=== PATIENT | male | born 2005 | race Caucasian/White ===

== ENCOUNTER 2023-07-10 00:48 | Emergency (ER) | payer SELFPAY ==
[2023-07-10 00:58] VITALS: BP 138/89; PULSE 110; RESP 16; TEMP 37.1; O2SAT 99; BMI 38.7
--- NOTE | 2023-07-10 01:34 | XR_ITS ---
The [address] [address] Patient Name: ANN MARTIN MRN: [id number] date: 2005 Sex: M Assigned Patient Location: ER Current Patient Location: Accession/Order Number: [id number] Exam Date: 07/10/2023 01:54 Report Date: 07/10/2023 02:37 At the request of: JENNIFER WHITE Procedure: XR chest 2V EXAM: XR chest 2V HISTORY: cough and flulike symptoms. COMPARISON: Acute abdominal series, 09/26/2015. TECHNIQUE: Frontal and lateral chest x-rays. FINDINGS: The heart, mediastinum and pulmonary vascularity are within normal limits. The lungs and pleural spaces are clear. The bony thorax is intact. XR/XR chest 2V IMPRESSION: Nonacute chest. Electronically authenticated by: RICARDO PADILLA Date: 07/10/2023 02:37
--- NOTE | 2023-07-10 01:38 | ED_ITS ---
HPI - URI/Sore Throat General Chief Complaint: Upper Respiratory Infection Stated Complaint: SORE THROAT Time Seen by Provider: 07/10/23 01:25 Source: patient Limitations: no limitations History of Present Illness HPI Narrative: patient presents complaining of being ill for past 4 days. Describes heart burn, cough. Throat is sore but no problem swallowing. not short of breath. No abdominal pain or headache. he is here with his mother who has similar symptoms MD elicited complaint: Reports cough Related Data Allergies Allergy/AdvReac Type Severity Reaction Status Date / Time No Known Drug Allergies Allergy Verified 07/10/23 01:00 Review of Systems ROS Status of ROS 10 or more systems reviewed and unremarkable except as noted in history and below [facility] PFS Social History Smoking status: Current every day smoker Exam Constitutional Vital Signs, click to edit/add: Last Vital Signs Temp 98.7 F 07/10/23 00:58 Pulse 110 H 07/10/23 00:58 Resp 16 07/10/23 00:58 BP 138/89 07/10/23 00:58 Pulse Ox 99 07/10/23 00:58 O2 Del Method Room Air 07/10/23 00:58 Common normals: no apparent distress, average body habitus, oriented x3, no limitations, healthy appearing, alert and well nourished [facility] Other: oral pharynx clear Eye Common normals: EOMs intact bilaterally and conjunctivae normal Respiratory Common normals: normal respiratory effort, no retractions and no use of accessory muscles Cardio Common normals: regular rate, regular rhythm, S1 normal heart sound and S2 normal heart sound GI Common normals: Normal to inspection, nondistended, normoactive bowel sounds present, soft to palpation and non-tender Extremity Common normals: normal to inspection and full ROM Neuro Common normals: oriented x3, CN's II-XII intact bilaterally, moves all extremities and no focal motor deficits Psych Appearance: grossly normal Course Vital Signs Vital signs: Vital Signs Temperature 98.7 F 07/10/23 00:58 Pulse Rate 110 H 07/10/23 00:58 Respiratory Rate 16 07/10/23 00:58 Blood Pressure 138/89 07/10/23 00:58 Pulse Oximetry 99 07/10/23 00:58 Oxygen Delivery Method Room Air 07/10/23 00:58 Temperature 98.7 F 07/10/23 00:58 Pulse Rate 110 H 07/10/23 00:58 Respiratory Rate 16 07/10/23 00:58 Blood Pressure 138/89 07/10/23 00:58 Pulse Oximetry 99 07/10/23 00:58 Oxygen Delivery Method Room Air 07/10/23 00:58 MDM - URI/Sore Throat MDM Narrative Medical decision making narrative: patient presents with URI symptoms of productive cough, sore throat. ill for past 4 days. not short of breath. States fever at home yesterday but afebrile here in the department. Exam unremarkable. cxray clear, respiratory panel swab neg and WBC normal. Patient advised of the working diagnosis of Bronchitis/URI and discharged home with amanda and advised to follow up with his family doctor for recheck Lab Data Labs: Lab Results 07/10/23 07/10/23 Range/Units 01:40 01:57 WBC 11.4 H (4.0-11.0) 10^3/uL RBC 5.41 (4.70-6.10) 10^6/uL Hgb 15.3 (14.0-18.0) g/dL Hct 46.8 (42.0-54.0) % MCV 86.5 (80.0-94.0) fL MCH 28.3 (25.9-34.0) pg MCHC 32.7 (29.9-35.2) g/dL RDW 13.2 (11.0-15.0) % Plt Count 325 (150-450) 10^3/uL MPV 9.7 (9.5-13.5) fL Neut % (Auto) 54.1 (43.0-75.0) % Lymph % (Auto) 35.0 (20.5-60.0) % [place] % (Auto) 6.3 (1.7-12.0) % Eos % (Auto) 3.3 (0.9-7.0) % Baso % (Auto) 0.6 (0.2-2.0) % Neut # (Auto) 6.1 (1.4-6.5) 10^3/uL Lymph # (Auto) 4.0 H (1.2-3.8) 10^3/uL [place] # (Auto) 0.7 (0.3-0.8) 10^3/uL Eos # (Auto) 0.4 (0.0-0.7) 10^3/uL Baso # (Auto) 0.1 (0.0-0.1) 10^3/uL Abs Immat Gran (auto) 0.08 H (0.00-0.03) 10^3/uL Imm/Tot Granulo (auto) 0.7 H (0.0-0.5) % Sodium 141 (136-145) mmol/L Potassium 4.2 (3.5-5.1) mmol/L Chloride 104 (98-107) mmol/L Carbon Dioxide 26.6 (21.0-32.0) mmol/L Anion Gap 14.6 BUN 14.0 (7.0-18.0) mg/dL Creatinine 0.98 (0.70-1.30) mg/dL Est GFR ( Amer) >60 (>=60) Est GFR (Non-Af Amer) >60 (>=60) BUN/Creatinine Ratio 14.3 Glucose 91 (74-106) mg/dL Calcium 9.3 (8.5-10.1) mg/dL Adenovirus (PCR) Not detected (NOT DETECTE) C. pneumoniae DNA (PCR) Not detected (NOT DETECTE) Coronavirus Type OC43 Not detected (NOT DETECTE) Coronavirus Type HKU1 Not detected (NOT DETECTE) Coronavirus Type 229E Not detected (NOT DETECTE) Coronavirus Type NL63 Not detected (NOT DETECTE) Human Metapneumovir PCR Not detected (NOT DETECTE) M. pneumoniae (PCR) Not detected (NOT DETECTE) Parainfluenza PCR Not detected (NOT DETECTE) Parainfluenza 2 (PCR) Not detected (NOT DETECTE) Parainfluenza 3 (PCR) Not detected (NOT DETECTE) Parainfluenza 4 (PCR) Not detected (NOT DETECTE) RSV (RT-PCR) Not detected (NOT DETECTE) Entero/Rhino (PCR) Not detected (NOT DETECTE) SARS-CoV-2 (PCR) Not detected (NOT DETECTE) Bordetella pertussis (PCR) Not detected (NOT DETECTE) B parapertussis DNA PCR Not detected (NOT DETECTE) Influenza Type A (PCR) Not detected (NOT DETECTE) Influenza Type B (PCR) Not detected (NOT DETECTE) Discharge Plan Discharge Chief Complaint: Upper Respiratory Infection Clinical Impression: Upper respiratory infection Patient Disposition: Home, Self-Care Instructions: Upper Respiratory Infection (ED) Stand Alone Forms: Portal Instructions Referrals: MOIZ WARD [Primary Care Provider] - 1 week
[2023-07-10] MEDS: lidocaine HCL 15 ML, MAG HYDROX/ALUMINUM HYD/SIMETH 30 ML, HYOSCYAMINE SULFATE 0.25 MG PO (01:56)
[2023-07-10 02:04] LABS: Adenovirus NOT DETECTED (NOT DETECTE); Bordetella parapertussis NOT DETECTED (NOT DETECTE); Coronavirus 229E NOT DETECTED (NOT DETECTE); Coronavirus HKU1 NOT DETECTED (NOT DETECTE); Coronavirus NL63 NOT DETECTED (NOT DETECTE); Coronavirus OC43 NOT DETECTED (NOT DETECTE); Human Metapneumovirus NOT DETECTED (NOT DETECTE); Human Rhinovirus/Enterovirus NOT DETECTED (NOT DETECTE); Influenza A NOT DETECTED (NOT DETECTE); Influenza B NOT DETECTED (NOT DETECTE); Mycoplasma pneumoniae NOT DETECTED (NOT DETECTE); Parainfluenza Virus 1 NOT DETECTED (NOT DETECTE); Parainfluenza Virus 2 NOT DETECTED (NOT DETECTE); Parainfluenza Virus 3 NOT DETECTED (NOT DETECTE); Parainfluenza Virus 4 NOT DETECTED (NOT DETECTE); Respiratory Syncytial Virus NOT DETECTED (NOT DETECTE); SARS-CoV-2 NOT DETECTED (NOT DETECTE)
[2023-07-10 02:10] LABS: Basophils Absolute Auto 0.1 10^3/uL (0.0-0.1); Basophils Percent Auto 0.6 % (0.2-2.0); Eosinophils Absolute Auto 0.4 10^3/uL (0.0-0.7); Eosinophils Percent Auto 3.3 % (0.9-7.0); Hematocrit 46.8 % (42.0-54.0); Hemoglobin 15.3 g/dL (14.0-18.0); Immature Granulocytes Abs Auto 0.08 10^3/uL (0.00-0.03); Immature Granulocytes Pct Auto 0.7 % (0.0-0.5); Mean Corpuscular HGB Conc 32.7 g/dL (29.9-35.2); Mean Corpuscular Hemoglobin 28.3 pg (25.9-34.0); Mean Corpuscular Volume 86.5 fL (80.0-94.0); Mean Platelet Volume 9.7 fL (9.5-13.5); Monocytes Absolute Auto 0.7 10^3/uL (0.3-0.8); Monocytes Percent Auto 6.3 % (1.7-12.0); Neutrophils Absolute Auto 6.1 10^3/uL (1.4-6.5); Neutrophils Percent Auto 54.1 % (43.0-75.0); Platelet Count 325 10^3/uL (150-450); Red Blood Count 5.41 10^6/uL (4.70-6.10); Red Cell Distribution Width 13.2 % (11.0-15.0); White Blood Count 11.4 10^3/uL (4.0-11.0)
[2023-07-10 02:26] LABS: Anion Gap 14.6; BUN Creatinine Ratio 14.3; Calcium 9.3 mg/dL (8.5-10.1); Carbon Dioxide 26.6 mmol/L (21.0-32.0); Chloride 104 mmol/L (98-107); Estimated GFR (African America >60 (>=60); Estimated GFR (Non-African Ame >60 (>=60); Glucose 91 mg/dL (74-106); Potassium 4.2 mmol/L (3.5-5.1); Sodium 141 mmol/L (136-145)
[2023-07-10] MEDS: AZITHROMYCIN 250 MG TABLET 500 MG PO (06:08)
== END 2023-07-10 06:16 | disposition home or self-care (01) ==
PROVIDERS: Emergency Provider Internal Medicine; PCP Nurse Practitioner Family
DX: J06.9 Acute upper respiratory infection, unspecified (principal); F17.210 Nicotine dependence, cigarettes, uncomplicated; Z20.822 Contact with and (suspected) exposure to COVID-19
CPT/HCPCS: 0202U; 36415; 71046; 80048; 85025; 99284